=== PATIENT | male | born 1990 | race Two or more races ===

== ENCOUNTER 2021-07-18 12:34 | Emergency (ER) | payer SELFPAY ==
[~2021-07-18] VITALS: Ht 167.6 cm; Wt 68.0 kg
[2021-07-18 12:37] VITALS: BP 118/72
[2021-07-18] MEDS ORDERED: SODIUM CHLORIDE 0.9% 1,000 ML IV ONE (12:45)
[2021-07-18 13:19] LABS: BASOPHILS % 0.8 % (0.0-2.0); HEMATOCRIT. 42.5 % (42.0-52.0); HEMOGLOBIN. 14.4 g/dL (14.0-18.0); LYMPHOCYTES % 21.9 % (20.0-50.0); MEAN CORPUSCULAR VOLUME 91.5 fL (80.0-94.0); MEAN PLATELET VOLUME 7.3 fl (7.4-10.4); MONOCYTES % 8.4 % (2.0-8.0); NEUTROPHILS % 65.9 % (40.0-76.0); PLATELET 376 x1000/uL (130-400); RED BLOOD CELL COUNT 4.65 mill/uL (4.7-6.1); RED CELL DISTRIBUTION WIDTH 13.6 % (11.6-14.6)
[2021-07-18 13:24] LABS: CHLORIDE 106 mEq/L (98-107)
[2021-07-18 13:28] LABS: ETHANOL BLOOD < 10 mg/dL
== END 2021-07-18 18:17 | disposition home or self-care (01) ==
LOC: ER 12:34
DX: R46.2 Strange and inexplicable behavior (principal)
CPT/HCPCS: 36415; 80053; 80307; 80320; 80329; 85025; 99283; J7030; G0480